=== PATIENT | female | born 1985 | race Caucasian/White ===

== ENCOUNTER 2016-03-25 10:17 | Emergency (ER) | payer OTHER, MEDICAID ==
[~2016-03-25] VITALS: Ht 170.2 cm; Wt 125.0 kg
[~2016-03-25 10:17] MED LIST: BUSP10TA8 PO; WELLTAB39 PO; XANA0.5T PO
[2016-03-25 10:18] VITALS: BP 117/84; PULSE 85; RESP 16; TEMP 99; O2SAT 97
[2016-03-25] MEDS ORDERED: WELLTAB39 PO (10:31)
[2016-03-25] MEDS ORDERED: ALPR.5 PO (10:31)
[2016-03-25] MEDS ORDERED: PERC7.5T13 PO (10:49)
[2016-03-25] MEDS ORDERED: CYCL1TAB29 PO (10:49)
--- NOTE | 2016-03-25 10:50 | PD ---
HPI Chief Complaint: Musculoskeletal Complaint Time Seen by Provider: 10:45 Travel History International Travel<30 days: No Contact w/Intl Traveler<30days: No Traveled to known affect area: No History of Present Illness HPI This 30-year-old female is complaining of left sciatic pain radiates to the front of the leg. It has been going on for several days getting progressively worse. She had an MRI done which did not show any herniation of the disc that she had some desiccation of the disks and some bulging. She had a fall 3 or 4 days ago where a chair collapsed and she landed on the right side. She was able to get up and didn't have much pain at the time since then however the pain became quite severe PFSH Past Medical History Hx Anticoagulant Therapy: No ADHD: Yes Arthritis: Yes Asthma: Yes Autoimmune Disease: No Blood Disorders: No Bipolar Disorder: Yes Anxiety: Yes Depression: Yes Cancer: No Cardiovascular Problems: No High Cholesterol: Yes ("MILD") Chemotherapy: No Cerebrovascular Accident: No Diabetes: Yes (DIET CONTROLLED) Patient Takes Glucophage: No Diminished Hearing: Yes (PT STATES " LEFT EAR") Endocrine: Yes Gastrointestinal Disorders: No Glaucoma: No Genitourinary: No Headaches: Yes Herniated Disk: Yes ("PROTRUDING DISC" LUMBAR) Immune Disorder: No Implanted Vascular Access Dvce: Yes Insomnia: Yes Musculoskeletal: Yes Neurologic: Yes Psychiatric: Yes (ADD,OCD,ANXIETY,DEPRESSION AND BIPOLAR) Reproductive: No Respiratory: No Immunizations Current: Yes Migraines: Yes Pneumonia: Yes Seizures: No Sickle Cell Disease: No Thyroid Disease: No Ulcer: No Influenza Vaccination: No PNEUMOCCOCAL Vaccine (Year): 3 ?: Not LMP: TUBAL : 14 Para: 3 Miscarriage: 11 : 0 Ovarian Cysts: Yes Tubal Ligation: Yes (2012) Past Surgical History Abdominal Surgery: Yes Appendectomy: No Body Medical Devices: pierced tongue Cholecystectomy: No Gynecologic Surgery: Yes Hysterectomy: No Other Surgery: No Social History Alcohol Use: Yes (occ) Tobacco Use: Yes (1 -2 CIGS PER DAY) Substance Use: No (PAST USE OF WEED) Allergies-Medications (Allergen,Severity, Reaction): Coded Allergies: Lortab (Verified Allergy, Severe, Anaphylaxis, 03/25/16) Reported Meds & Prescriptions Reported Meds & Active Scripts Active Reported Wellbutrin Xl 24 HR (Bupropion HCl) 300 Mg Tab 300 Mg PO DAILY Xanax (Alprazolam) 0.5 Mg Tab 0.5 Mg PO BID PRN Review of Systems General / Constitutional: No: Fever, Chills Eyes: No: Diploplia, Blurred Vision HENT: No: Vertigo Respiratory: No: Cough, Shortness of Breath Gastrointestinal: No: Nausea, Vomiting Genitourinary: No: Frequency Musculoskeletal: Positive: Myalgias, Pain Skin: No Rash, No Itching Physical Exam Narrative GENERAL: Well-developed female SKIN: Warm and dry. HEAD: Atraumatic. Normocephalic. EYES: Pupils equal and round. No scleral icterus. No injection or drainage. ENT: No nasal bleeding or discharge. Mucous membranes pink and moist. NECK: Trachea midline. No JVD. CARDIOVASCULAR: Regular rate and rhythm. No murmur appreciated. RESPIRATORY: No accessory muscle use. Clear to auscultation. Breath sounds equal bilaterally. GASTROINTESTINAL: Abdomen soft, non-tender, nondistended. Hepatic and splenic margins not palpable. MUSCULOSKELETAL: No obvious deformities. No clubbing. No cyanosis. No edema. Ears tenderness in the right sacroiliac area. Right leg raising is painful at 1345 on the left and the right she cannot tolerate any leg raising. Plantar and dorsiflexion are intact. There is diminished sensation of the upper leg NEUROLOGICAL: Awake and alert. No obvious cranial nerve deficits. Motor grossly within normal limits. Normal speech. PSYCHIATRIC: Appropriate mood and affect; insight and judgment normal. Data Data Last Documented VS Vital Signs Date Time Temp Pulse Resp B/P Pulse Ox O2 Delivery O2 Flow Rate FiO2 03/25/16 10:18 99.0 85 16 117/84 97 [facility] Medical Decision Making Medical Screen Exam Complete: Yes Emergency Medical Condition: Yes Medical Record Reviewed: Yes Differential Diagnosis Differential includes sciatica, radiculopathy, exacerbation of back pain Narrative Course Patient has symptoms of sciatica. She had been on Motrin was taken off because she was having a lot of reflux. I will prescribe Flexeril and Percocet Diagnosis Primary Impression: Sciatica of left side Scripts Cyclobenzaprine (Flexeril)10 Mg Tab10 Mg PO TID #30 TAB Ref 0 Prov:Hernesto Fay MD 03/25/16 Oxycodone-Acetaminophen (Percocet)7.5-325 mg Tab1 Tab PO Q4H PRN (PAIN) #30 TAB Ref 0 Prov:Hernesto Fay MD 03/25/16 Disposition: 01 DISCHARGE HOME Condition: Stable Hernesto Fay MD Mar 25, 2016 10:50
== END 2016-03-25 11:01 | disposition home or self-care (01) ==
LOC: PHED 10:17
DX: E78.00 Pure hypercholesterolemia, unspecified (principal); M54.32 Sciatica, left side
CPT/HCPCS: 99283

== ENCOUNTER 2016-04-08 07:06 | Emergency (ER) | payer OTHER, MEDICAID ==
[~2016-04-08] VITALS: Ht 170.2 cm; Wt 122.7 kg
[~2016-04-08 07:06] MED LIST changes: +ALPR.5 PO; -BUSP10TA8 PO; +CYCL1TAB29 PO; +PERC7.5T13 PO; -XANA0.5T PO
[2016-04-08 07:10] VITALS: BP 138/77; PULSE 80; RESP 14; TEMP 98.5; O2SAT 100
[2016-04-08] MEDS: IBUPROFEN 600 MG TAB PO ONE ×2 (07:15→07:20)
[2016-04-08] MEDS ORDERED: DIAZEPAM 5 MG TAB PO ONE (07:15)
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
[2016-04-08 08:16] VITALS: BP 115/73; PULSE 71; RESP 18; O2SAT 98
== END 2016-04-08 08:49 | disposition home or self-care (01) ==
LOC: PHED 07:06
DX: M54.5 Low back pain (principal); R07.9 Chest pain, unspecified; E78.00 Pure hypercholesterolemia, unspecified; V43.52XA Car driver injured in collision with other type car in traffic accident, initial encounter; Y93.89 Activity, other specified; Y92.410 Unspecified street and highway as the place of occurrence of the external cause
CPT/HCPCS: 71010; 72100; 99284

== ENCOUNTER 2016-05-13 09:39 | Emergency (ER) | payer OTHER ==
[~2016-05-13] VITALS: Ht 170.2 cm; Wt 126.4 kg
[~2016-05-13 09:39] MED LIST changes: -CYCL1TAB29 PO; -PERC7.5T13 PO
[2016-05-13 09:45] VITALS: BP 149/99; PULSE 100; RESP 16; TEMP 97.7; O2SAT 99
[2016-05-13] MEDS ORDERED: ACET325T PO (10:06)
[2016-05-13] MEDS ORDERED: GABA300C5 PO (10:06)
[2016-05-13] MEDS ORDERED: MILL5TAB2 PO (10:09)
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
[2016-05-13] MEDS ORDERED: ORPHENADRINE INJ 60 MG/2 ML AMP IM ONE (10:15)
[2016-05-13] MEDS ORDERED: KETOROLAC TROMETHAMINE 60 MG/2 ML (IM) VIAL IM ONE (10:15)
== END 2016-05-13 10:42 | disposition home or self-care (01) ==
LOC: PHED 09:39
DX: M54.42 Lumbago with sciatica, left side (principal); M54.41 Lumbago with sciatica, right side
CPT/HCPCS: 96372; 99283; J1885; J2360

== ENCOUNTER 2016-07-07 16:51 | Emergency (ER) | payer MEDICAID, OTHER ==
[~2016-07-07] VITALS: Ht 170.2 cm; Wt 130.0 kg
[~2016-07-07 16:51] MED LIST changes: +ACET325T PO; +GABA300C5 PO; +MILL5TAB2 PO
[2016-07-07] MEDS ORDERED: GABA100C4 PO (17:03)
[2016-07-07] MEDS ORDERED: ABIL5TAB6 PO (17:03)
[2016-07-07] MEDS ORDERED: GABA400C5 PO (17:03)
[2016-07-07] MEDS ORDERED: SODIUM CHLOR 0.9% 1000 ML INJ 1,000 ML IV ONE (17:15)
[2016-07-07] MEDS ORDERED: PROCHLORPERAZINE INJ 10 MG/2 ML VIAL IV PUSH ONE (17:15)
[2016-07-07] MEDS ORDERED: KETOROLAC TROMETHAMINE 30 MG/ML (IVP) VIAL IV PUSH ONE (17:15)
--- NOTE | 2016-07-07 17:18 | PD ---
HPI Chief Complaint: Headache Time Seen by Provider: 17:06 Travel History International Travel<30 days: No Contact w/Intl Traveler<30days: No Traveled to known affect area: No History of Present Illness HPI This 30-year-old female is complaining of migraine headache area and she has a history of chronic migraines. This headache started yesterday. She's been taking some Tylenol and Zofran the headache has not abated. She has had some vomiting. She has a history of tubal ligation. This headache is similar to previous headaches. She does see a neurologist. She does have photophobia. PFSH Past Medical History Hx Anticoagulant Therapy: No ADHD: Yes Arthritis: Yes Asthma: Yes Autoimmune Disease: No Blood Disorders: No Bipolar Disorder: Yes Anxiety: Yes Depression: Yes Cancer: No Cardiovascular Problems: Yes (takes no meds per patient but states has htn) High Cholesterol: Yes Chemotherapy: No Cerebrovascular Accident: No Diabetes: Yes (diet control) Patient Takes Glucophage: No Diminished Hearing: Yes (Lt. ear) Endocrine: Yes Gastrointestinal Disorders: No Glaucoma: No Genitourinary: No Headaches: Yes Herniated Disk: Yes ("Protuding disc" lumbar) Immune Disorder: No Implanted Vascular Access Dvce: Yes Insomnia: Yes Musculoskeletal: Yes Neurologic: Yes Psychiatric: Yes (ADD, OCD, ANXIETY, DEPRESSION, BIPOLAR) Reproductive: No Respiratory: Yes (copd) Immunizations Current: Yes Migraines: Yes Pneumonia: Yes Seizures: No Sickle Cell Disease: No Thyroid Disease: No Ulcer: No Influenza Vaccination: No PNEUMOCCOCAL Vaccine (Year): 3 ?: Not LMP: YEST : 14 Para: 3 Miscarriage: 11 : 0 Ovarian Cysts: Yes Tubal Ligation: Yes (2012) Past Surgical History Abdominal Surgery: Yes Appendectomy: No Body Medical Devices: pierced tongue Cholecystectomy: No Gynecologic Surgery: Yes Hysterectomy: No Other Surgery: No Social History Alcohol Use: Yes (occ) Tobacco Use: Yes (3-5 cigarettes/day) Substance Use: No (HX marijuana) Allergies-Medications (Allergen,Severity, Reaction): Coded Allergies: Lortab (Verified Allergy, Severe, Anaphylaxis, 07/07/16) Patient states itching, hives (04/08/16) Reported Meds & Prescriptions Reported Meds & Active Scripts Active Reported Gabapentin 400 Mg Cap 400 Cap PO HS Gabapentin 100 Mg Cap 100 Mg PO BID Abilify (Aripiprazole) 5 Mg Tab 5 Mg PO HS Wellbutrin Xl 24 HR (Bupropion HCl) 300 Mg Tab 300 Mg PO DAILY Xanax (Alprazolam) 0.5 Mg Tab 0.5 Mg PO BID PRN Review of Systems General / Constitutional: No: Fever, Chills Eyes: No: Diploplia, Blurred Vision HENT: Positive: Headaches, No: Nosebleed, Neck Stiffness Cardiovascular: No: Chest Pain or Discomfort, Palpitations Respiratory: No: Cough, Shortness of Breath Gastrointestinal: Positive: Vomiting Genitourinary: No: Urgency, Frequency Musculoskeletal: No: Myalgias, Arthralgias Skin: No Rash, No Itching Neurologic: Positive: Headache, No: Weakness, Focal Abnormalities Physical Exam Narrative GENERAL: Well-developed female. She is uncomfortable with headache SKIN: Focused skin assessment warm/dry. HEAD: Atraumatic. Normocephalic. EYES: Pupils equal and round. No scleral icterus. No injection or drainage. ENT: No nasal bleeding or discharge. Mucous membranes pink and moist. NECK: Trachea midline. No JVD. CARDIOVASCULAR: Regular rate and rhythm. No murmur appreciated. RESPIRATORY: No accessory muscle use. Clear to auscultation. Breath sounds equal bilaterally. GASTROINTESTINAL: Abdomen soft, non-tender, nondistended. Hepatic and splenic margins not palpable. MUSCULOSKELETAL: No obvious deformities. No clubbing. No cyanosis. No edema. NEUROLOGICAL: Awake and alert. No obvious cranial nerve deficits. Motor grossly within normal limits. Normal speech. PSYCHIATRIC: Appropriate mood and affect; insight and judgment normal. Data Data Last Documented VS Vital Signs Date Time Temp Pulse Resp B/P Pulse Ox O2 Delivery O2 Flow Rate FiO2 07/07/16 18:21 18 07/07/16 18:11 74 145/79 97 Room Air Orders Sodium Chlor 0.9% 1000 Ml Inj (Ns 1000 M (07/07/16 17:15) Prochlorperazine Inj (Compazine Inj) (07/07/16 17:15) Ketorolac Inj (Toradol Inj) (07/07/16 17:15) Diphenhydramine Inj (Benadryl Inj) (07/07/16 18:00) Hydromorphone Pf Inj (Dilaudid Pf Inj) (07/07/16 18:00) Hydromorphone Pf Inj (Dilaudid Pf Inj) (07/07/16 18:30) MDM Medical Decision Making Medical Screen Exam Complete: Yes Emergency Medical Condition: Yes Medical Record Reviewed: Yes Differential Diagnosis Differential includes migraine headache, tension headache Narrative Course Patient was given IV fluids and intravenous Compazine and Toradol. She had persistent headache that she has been given Dilaudid. Patient does report improvement in her pain. Will be released Diagnosis Primary Impression: Migraine headache Scripts Ondansetron Odt (Zofran Odt)4 Mg Tab4 Mg SL Q6HR PRN (Nausea/Vomiting) #10 TAB Ref 0 Prov:Hernesto Fay MD 07/07/16 Oxycodone-Acetaminophen (Percocet)10-325 mg Tab1 Tab PO Q4H PRN (PAIN) #20 TAB Ref 0 Prov:Hernesto Fay MD 07/07/16 Disposition: 01 DISCHARGE HOME Condition: Stable Hernesto Fay MD Jul 07, 2016 17:18
[2016-07-07] MEDS ORDERED: diphenhydrAMINE HCL 50 MG/ML VIAL IV PUSH ONE (18:00)
[2016-07-07] MEDS ORDERED: HYDROmorphone HCL PF 1 MG/ML VIAL IV PUSH ONE ×2 (18:00→18:30)
[2016-07-07 18:11] VITALS: BP 145/79; PULSE 74; RESP 18; O2SAT 97
[2016-07-07 18:53] VITALS: RESP 18
[2016-07-07] MEDS ORDERED: PERC10TA27 PO (18:53)
[2016-07-07] MEDS ORDERED: ZOFR4TAB3 SL (18:53)
[2016-07-07 19:16] VITALS: BP 151/84; TEMP 98
== END 2016-07-07 19:19 | disposition home or self-care (01) ==
LOC: PHED 16:51
DX: G43.909 Migraine, unspecified, not intractable, without status migrainosus (principal); F17.210 Nicotine dependence, cigarettes, uncomplicated; J45.909 Unspecified asthma, uncomplicated; I10 Essential (primary) hypertension; E78.00 Pure hypercholesterolemia, unspecified; E11.9 Type 2 diabetes mellitus without complications; R51 Headache; J44.9 Chronic obstructive pulmonary disease, unspecified
CPT/HCPCS: 96361; 96374; 96375; 96376; 99283; J0780; J1170; J1200; J1885; J7030

== ENCOUNTER 2016-07-16 19:26 | Emergency (ER) | payer OTHER ==
[~2016-07-16] VITALS: Ht 170.2 cm; Wt 124.7 kg
[~2016-07-16 19:26] MED LIST changes: +ABIL5TAB6 PO; -ACET325T PO; +GABA100C4 PO; -GABA300C5 PO; +GABA400C5 PO; -MILL5TAB2 PO; +PERC10TA27 PO; +ZOFR4TAB3 SL
[2016-07-16 19:31] VITALS: BP 130/94; PULSE 111; RESP 20; TEMP 98.1; O2SAT 99
[2016-07-16 19:57] VITALS: BP 108/64; PULSE 87; RESP 18; O2SAT 100
[2016-07-16] MEDS ORDERED: traMADol HCL 50 MG TAB PO ONE (20:00)
--- NOTE | 2016-07-16 20:52 | PD ---
HPI . Fall Chief Complaint: Fall Time Seen by Provider: 19:59 Travel History International Travel<30 days: No Contact w/Intl Traveler<30days: No Traveled to known affect area: No History of Present Illness HPI Patient presents ambulatory status post a fall at home. She states that she was washing the steps with soap and water and inadvertently slipped on the steps and fell. Her significant other reports that she sort of twisted and fell onto her left side and then onto her back. She did hit her head but did not have a loss of consciousness. She denies any head pain. She denies any blurred vision, nausea or dizziness. She is complaining with low back pain, left hip pain and left knee pain. She reports her pain is 10/10. Pain is exacerbated by movement. No relieving factors. Pain is sharp. PFSH Past Medical History Hx Anticoagulant Therapy: No ADHD: Yes Arthritis: Yes Asthma: Yes Autoimmune Disease: No Blood Disorders: No Bipolar Disorder: Yes Anxiety: Yes Depression: Yes Cancer: No Cardiovascular Problems: Yes (takes no meds per patient but states has htn) High Cholesterol: Yes Chemotherapy: No Cerebrovascular Accident: No Diabetes: Yes (diet control) Patient Takes Glucophage: No Diminished Hearing: Yes (Lt. ear) Endocrine: Yes Gastrointestinal Disorders: No Glaucoma: No Genitourinary: No Headaches: Yes Herniated Disk: Yes ("Protuding disc" lumbar) Immune Disorder: No Implanted Vascular Access Dvce: Yes Insomnia: Yes Musculoskeletal: Yes Neurologic: Yes Psychiatric: Yes (ADD, OCD, ANXIETY, DEPRESSION, BIPOLAR) Reproductive: No Respiratory: Yes (copd) Immunizations Current: Yes Migraines: Yes Pneumonia: Yes Seizures: No Sickle Cell Disease: No Thyroid Disease: No Ulcer: No Influenza Vaccination: No PNEUMOCCOCAL Vaccine (Year): 3 ?: Unknown LMP: 07/12/16 : 14 Para: 3 Miscarriage: 11 : 0 Ovarian Cysts: Yes Tubal Ligation: Yes (2012) Past Surgical History Abdominal Surgery: Yes Appendectomy: No Body Medical Devices: pierced tongue Cholecystectomy: No Gynecologic Surgery: Yes Hysterectomy: No Other Surgery: No Social History Alcohol Use: Yes (occ) Tobacco Use: Yes (/2 ppd) Substance Use: Yes (Daily marijuana ) Allergies-Medications (Allergen,Severity, Reaction): Coded Allergies: Lortab (Verified Allergy, Severe, Anaphylaxis, 07/16/16) Patient states itching, hives (04/08/16) Reported Meds & Prescriptions Reported Meds & Active Scripts Active Ultram (Tramadol HCl) 50 Mg Tab 50 Mg PO Q4H PRN Ibuprofen 800 Mg Tab 800 Mg PO Q8H PRN Zofran Odt (Ondansetron Odt) 4 Mg Tab 4 Mg SL Q6HR PRN Percocet (Oxycodone-Acetaminophen) 10-325 mg Tab 1 Tab PO Q4H PRN Reported Gabapentin 400 Mg Cap 400 Cap PO HS Gabapentin 100 Mg Cap 100 Mg PO BID Abilify (Aripiprazole) 5 Mg Tab 5 Mg PO HS Wellbutrin Xl 24 HR (Bupropion HCl) 300 Mg Tab 300 Mg PO DAILY Xanax (Alprazolam) 0.5 Mg Tab 0.5 Mg PO BID PRN Review of Systems Except as stated in HPI: all other systems reviewed are Neg Eyes: No: Blurred Vision HENT: No: Headaches, Lightheadedness Cardiovascular: No: Chest Pain or Discomfort Respiratory: No: Shortness of Breath Gastrointestinal: No: Nausea, Vomiting, Diarrhea Musculoskeletal: Positive: Myalgias, Arthralgias Physical Exam Narrative GENERAL: Awake and alert and in no acute distress. SKIN: Warm and dry. No bruising noted. HEAD: Atraumatic. Normocephalic. She does have some tenderness to palpation of the left occiput. EYES: Pupils equal and round. Pupils are equally round and reactive to light. NECK: Trachea midline. I was unable to elicit any C-spine tenderness. CARDIOVASCULAR: Regular rate and rhythm. RESPIRATORY: No accessory muscle use. MUSCULOSKELETAL: No obvious deformities. No edema. Tender in the left buttock area, left groin and left knee. NEUROLOGICAL: Awake and alert. No obvious cranial nerve deficits. Motor grossly within normal limits. Normal speech. PSYCHIATRIC: Appropriate mood and affect; insight and judgment normal. Data Data Last Documented VS Vital Signs Date Time Temp Pulse Resp B/P Pulse Ox O2 Delivery O2 Flow Rate FiO2 07/16/16 21:28 73 16 98 Room Air 07/16/16 21:28 107/52 07/16/16 19:[address] Brain W/O Iv Contrast(Rout) (07/16/16 20:00) Ct Cerv Spine W/O Contrast (07/16/16 20:00) Ct Lumb Spine W/O Contrast (07/16/16 20:00) Hip, Uni(Ap&Lat) W Ap Pelvis (07/16/16 20:00) Knee, Complete (4vws) (07/16/16 20:00) Ed Urine Pregnancytest Poc (07/16/16 20:00) Tramadol (Ultram) (07/16/16 20:00) MDM Medical Decision Making Medical Screen Exam Complete: Yes Emergency Medical Condition: Yes Differential Diagnosis Differential diagnosis of extremity trauma includes but is not limited to fracture, sprain or strain, dislocation, contusion My differential diagnosis of head trauma includes but is not limited to scalp contusion, concussion, intracerebral hemorrhage. Narrative Course Patient presents for evaluation of injury sustained in a fall. Last Impressions Knee X-Ray 07/16/161999 Signed Impressions: Service Date/Time: Saturday, July 16, 2016 20:33 - CONCLUSION: Unremarkable examination of the left knee. Deion Craig MD Hip and Pelvis X-Ray 07/16/161999 Signed Impressions: Service Date/Time: Saturday, July 16, 2016 20:29 - CONCLUSION: Unremarkable examination of the left hip. Dieon Craig MD Head CT 07/16/161999 Signed Impressions: Service Date/Time: Saturday, July 16, 2016 20:53 - CONCLUSION: 1. No intracranial abnormality seen. 2. Ethmoid sinus disease. Deion Craig MD Cervical Spine CT 07/16/161999 Signed Impressions: Service Date/Time: Saturday, July 16, 2016 20:53 - CONCLUSION: No acute disease. Deion Craig MD CT L-spine 1. Lateral central disc protrusion that is peripherally calcified at the L5-S1 level seen in close proximity to the S1 nerve roots especially on the left. 2. Minimal bulging at the L4-5 level without significant stenosis. Plain films were independently viewed by me. Diagnosis Primary Impression: Fall Qualified Code: W19.XXXA - Fall, initial encounter Additional Impression: Multiple contusions Patient Instructions: Contusion in Adults (DC), General Instructions Med/Other Pt SpecificInfo: Prescription(s) given Scripts Tramadol (Ultram)50 Mg Tab50 Mg PO Q4H PRN (PAIN) #12 TAB Ref 0 Prov:Caridad Conteh MD 07/16/16 Ibuprofen 800 Mg [id number] Mg PO Q8H PRN (Pain/Inflammation) #30 TAB Ref 0 Prov:Caridad Conteh MD 07/16/16 Disposition: 01 DISCHARGE HOME Condition: Stable Caridad Conteh MD July 16, 2016 20:52
--- NOTE | 2016-07-16 21:05 | RADHPO ---
EXAM DATE/TIME: 07/16/2016 20:29 [facility] COMPARISON: No previous studies available for comparison. INDICATIONS : Left hip pain post falling down stairs. MEDICAL HISTORY : None. SURGICAL HISTORY : None. ENCOUNTER: Initial ACUITY: 1 day PAIN SCORE: 10/10 LOCATION: Left hip. FINDINGS: Examination of the left hip was performed with AP Pelvis. The primary and secondary trabecular patte rn of the femoral neck is intact. The hip joint is of normal width without significant sclerosis or bony hypertrophy. The acetabulum is grossly intact. CONCLUSION: Unremarkable examination of the left hip. Deion Craig MD on July 16, 2016 at 20:57 Board Certified Radiologist. This report was verified electronically.
--- NOTE | 2016-07-16 21:08 | RADHPO ---
EXAM DATE/TIME: 07/16/2016 20:33 [facility] COMPARISON: No previous studies available for comparison. INDICATIONS : Left knee pain post falling down stairs. MEDICAL HISTORY : None. SURGICAL HISTORY : None. ENCOUNTER: Initial ACUITY: 1 day PAIN SCORE: 6/10 LOCATION: Left knee. FINDINGS: Four view examination of the left knee demonstrates no evidence of fracture or dislocation. Bony min eralization is normal. The articular surfaces are intact. The suprapatellar soft tissues have a nor mal configuration. CONCLUSION: Unremarkable examination of the left knee. Deino Craig MD on July 16, 2016 at 21:03 Board Certified Radiologist. This report was verified electronically.
[2016-07-16 21:28] VITALS: BP 107/52; PULSE 73; RESP 16; O2SAT 98
--- NOTE | 2016-07-16 21:35 | RADHPO ---
EXAM DATE/TIME: 07/16/2016 20:53 [facility] COMPARISON: CT BRAIN W/O CONTRAST, August 04, 2012, 20:04. INDICATIONS : Trauma. Fall. Cephalgia. RADIATION DOSE: 59.65 CTDIvol (mGy) MEDICAL HISTORY : Diabetes mellitus type 2. SURGICAL HISTORY : None. ENCOUNTER: Initial ACUITY: 1 day PAIN SCALE: 9/10 LOCATION: Bilateral cranial TECHNIQUE: Multiple contiguous axial images were obtained of the head. Using automated exposure control and adj ustment of the mA and/or kV according to patient size, radiation dose was kept as low as reasonably a chievable to obtain optimal diagnostic quality images. FINDINGS: CEREBRUM: The ventricles are normal for age. No evidence of midline shift, mass lesion, hemorrhage or acute in farction. No extra-axial fluid collections are seen. POSTERIOR FOSSA: The cerebellum and brainstem are intact. The 4th ventricle is midline. The cerebellopontine angle i s unremarkable. EXTRACRANIAL: The visualized portion of the orbits is intact. There is ethmoid sinus disease. SKULL: The calvaria is intact. No evidence of skull fracture. CONCLUSION: 1. No intracranial abnormality seen. 2. Ethmoid sinus disease. Deion Craig MD on July 16, 2016 at 21:33 Board Certified Radiologist. This report was verified electronically.
--- NOTE | 2016-07-16 21:37 | RADHPO ---
EXAM DATE/TIME: 07/16/2016 20:53 [facility] COMPARISON: No previous studies available for comparison. INDICATIONS : Trauma. Fall. Neck pain. RADIATION DOSE: 26.45 CTDIvol (mGy) MEDICAL HISTORY : Diabetes mellitus type 2. SURGICAL HISTORY : None. ENCOUNTER: Initial ACUITY: 1 day PAIN SCALE: 9/10 LOCATION: Bilateral neck TECHNIQUE: Volumetric scanning of the cervical spine was performed. Multiplanar reconstructions in the sagittal, coronal and oblique axial planes were performed. Using automated exposure control and adjustment o f the mA and/or kV according to patient size, radiation dose was kept as low as reasonably achievable to obtain optimal diagnostic quality images. FINDINGS: VERTEBRAE: Normal vertebral body height. ALIGNMENT: No evidence of subluxation. There is straightening of the normal C-spine lordosis. C2-C3: The bony spinal canal is normal in size. No evidence of disc bulge or herniation. The neural forami na are bilaterally patent. C3-C4: The bony spinal canal is normal in size. No evidence of disc bulge or herniation. The neural forami na are bilaterally patent. C4-C5: The bony spinal canal is normal in size. No evidence of disc bulge or herniation. The neural forami na are bilaterally patent. C5-C6: The bony spinal canal is normal in size. No evidence of disc bulge or herniation. The neural forami na are bilaterally patent. C6-C7: The bony spinal canal is normal in size. No evidence of disc bulge or herniation. The neural forami na are bilaterally patent. C7-T1: The bony spinal canal is normal in size. No evidence of disc bulge or herniation. The neural forami na are bilaterally patent. CONCLUSION: No acute disease. Deion Craig MD on July 16, 2016 at 21:34 Board Certified Radiologist. This report was verified electronically.
[2016-07-16] MEDS ORDERED: ULTR50TA5 PO (21:53)
[2016-07-16] MEDS ORDERED: IBUP800T23 PO (21:53)
--- NOTE | 2016-07-16 22:07 | RADHPO ---
EXAM DATE/TIME: 07/16/2016 20:59 [facility] COMPARISON: CT ABDOMEN & PELVIS W/O CONTRAST, May 20, 2014, 19:24. INDICATIONS : Trauma. Fall. Lower back pain. RADIATION DOSE: 24.60 CTDIvol (mGy) MEDICAL HISTORY : Diabetes mellitus type 2. Herniated lumbar disc. SURGICAL HISTORY : None. ENCOUNTER: Initial ACUITY: 1 day PAIN SCALE: 9/10 LOCATION: Bilateral lower back. TECHNIQUE: Volumetric scanning of the lumbar spine was performed. Multiplanar reconstructions in the sagittal, coronal and oblique axial planes were performed. Using automated exposure control and adjustment of the mA and/or kV according to patient size, radiation dose was kept as low as reasonab ly achievable to obtain optimal diagnostic quality images. FINDINGS: VERTEBRAE: Normal vertebral body height. ALIGNMENT: No evidence of subluxation. T12-L1: The thecal sac has a normal diameter. No evidence of disc bulge or protrusion. The neural foramina are patent bilaterally. L1-L2: The thecal sac has a normal diameter. No evidence of disc bulge or protrusion. The neural foramina are patent bilaterally. L2-L3: The thecal sac has a normal diameter. No evidence of disc bulge or protrusion. The neural foramina are patent bilaterally. L3-L4: The thecal sac has a normal diameter. No evidence of disc bulge or protrusion. The neural foramina are patent bilaterally. L4-L5: There is slight bulging without significant spinal stenosis and the neural foramina are nor mal. The facet joints are normal. L5-S1: There is a focal central disc protrusion. The posterior margin of the protrusion appears c alcified consistent with chronic change. In retrospect some of these changes can be seen on a prior CT of the abdomen performed on 05/20/2014. The disc causes a mild impression on the anterior aspect of the thecal sac. It is seen in close proximity to the S1 nerve roots while they are within the latera l recess regions especially on the left. The neural foramina are patent bilaterally. CONCLUSION: 1. Lateral central disc protrusion that is peripherally calcified at the L5-S1 level seen in close pr oximity to the S1 nerve roots especially on the left. 2. Minimal bulging at the L4-5 level without significant stenosis. Deion Craig MD on July 16, 2016 at 21:57 Board Certified Radiologist. This report was verified electronically.
== END 2016-07-16 22:41 | disposition home or self-care (01) ==
LOC: PHED 19:26
DX: T14.8 Other injury of unspecified body region (principal); E78.00 Pure hypercholesterolemia, unspecified; F17.210 Nicotine dependence, cigarettes, uncomplicated; F12.10 Cannabis abuse, uncomplicated; W01.198A Fall on same level from slipping, tripping and stumbling with subsequent striking against other object, initial encounter; Y93.E6 Activity, residential relocation; Y92.018 Other place in single-family (private) house as the place of occurrence of the external cause; Y99.9 Unspecified external cause status
CPT/HCPCS: 70450; 72125; 72131; 73502; 73564; 84703

== ENCOUNTER 2016-08-07 20:00 | Emergency (ER) | payer OTHER ==
[~2016-08-07] VITALS: Ht 170.2 cm; Wt 124.0 kg
[~2016-08-07 20:00] MED LIST changes: +IBUP800T23 PO; +ULTR50TA5 PO
[2016-08-07 20:35] VITALS: BP 121/89; PULSE 77; RESP 18; TEMP 98; O2SAT 98
[2016-08-07] MEDS ORDERED: ARIP1TAB5 PO (20:48)
--- NOTE | 2016-08-07 20:48 | PD ---
HPI Chief Complaint: Laceration/Skin Injury Time Seen by Provider: 20:42 Travel History International Travel<30 days: No Contact w/Intl Traveler<30days: No Traveled to known affect area: No History of Present Illness HPI 30-year-old female presents the emergency department with injury to the right foot and ankle from her own cat. Patient has a bite to the right medial upper ankle, with multiple superficial clew smith/abrasions to the dorsal right foot. Patient states she is up-to-date on her tetanus. She states this happened this morning. She states the cat was up-to-date on her shots. Patient is having increasing pain and swelling over the puncture smith from the teeth in the right upper medial ankle. Patient denies numbness, tingling, or weakness. Patient denies fever, chills, or red streaks. She is allergic to Lortab. PFSH Past Medical History Hx Anticoagulant Therapy: No ADHD: Yes Arthritis: Yes Asthma: Yes Autoimmune Disease: No Blood Disorders: No Bipolar Disorder: Yes Anxiety: Yes Depression: Yes Cancer: No Cardiovascular Problems: Yes (takes no meds per patient but states has htn) High Cholesterol: Yes Chemotherapy: No Cerebrovascular Accident: No Diabetes: Yes Diminished Hearing: Yes (Lt. ear) Endocrine: Yes Gastrointestinal Disorders: No Glaucoma: No Genitourinary: No Headaches: Yes Herniated Disk: Yes ("Protuding disc" lumbar) Immune Disorder: No Implanted Vascular Access Dvce: Yes Insomnia: Yes Musculoskeletal: Yes Neurologic: Yes Psychiatric: Yes (ADD, OCD, ANXIETY, DEPRESSION, BIPOLAR) Reproductive: No Respiratory: Yes (copd) Immunizations Current: Yes Migraines: Yes Pneumonia: Yes Seizures: No Sickle Cell Disease: No Thyroid Disease: No Ulcer: No PNEUMOCCOCAL Vaccine (Year): 3 ?: Not LMP: 07-26-17 : 14 Para: 3 Miscarriage: 11 : 0 Ovarian Cysts: Yes Tubal Ligation: Yes (2012) Past Surgical History Abdominal Surgery: Yes Appendectomy: No Body Medical Devices: pierced tongue Cholecystectomy: No Gynecologic Surgery: Yes Hysterectomy: No Other Surgery: No Social History Alcohol Use: Yes (occ) Tobacco Use: Yes (1/2 ppd) Substance Use: Yes (Daily marijuana ) Allergies-Medications (Allergen,Severity, Reaction): Coded Allergies: Lortab (Verified Allergy, Severe, Anaphylaxis, 08/07/16) Patient states itching, hives (04/08/16) Reported Meds & Prescriptions Reported Meds & Active Scripts Active Ibuprofen 800 Mg Tab 800 Mg PO Q8H PRN Augmentin (Amoxicillin-Clavulanate) 875-125 mg Tab 875 Mg PO BID not for use in CrCl <30 ml/min. Reported Abilify (Aripiprazole) 10 Mg Tab 10 Mg PO DAILY Gabapentin 400 Mg Cap 400 Cap PO HS Wellbutrin Xl 24 HR (Bupropion HCl) 300 Mg Tab 300 Mg PO DAILY Xanax (Alprazolam) 0.5 Mg Tab 0.5 Mg PO BID PRN Review of Systems Except as stated in HPI: all other systems reviewed are Neg General / Constitutional: No: Fever Eyes: No: Visual changes HENT: No: Headaches Cardiovascular: No: Chest Pain or Discomfort Respiratory: No: Shortness of Breath Gastrointestinal: No: Abdominal Pain Genitourinary: No: Dysuria Musculoskeletal: No: Pain Skin: No Rash Neurologic: No: Weakness Psychiatric: No: Depression Endocrine: No: Polydipsia Hematologic/Lymphatic: No: Easy Bruising Physical Exam Narrative GENERAL: Patient appears in mild distress. SKIN: Warm and dry. Normal color. Normal turgor. Patient has several superficial abrasions to the dorsal foot and anterior ankle from cat claws, as well as 2 definitive puncture wounds to the right upper medial ankle localized swelling and tenderness. No significant erythema or streaking is noted. HEAD: Atraumatic. Normocephalic. EYES: Pupils equal and round. No scleral icterus. No injection or drainage. ENT: No nasal bleeding or discharge. Mucous membranes pink and moist. Pharynx is clear. NECK: Trachea midline. Supple. CARDIOVASCULAR: Regular rate and rhythm. RESPIRATORY: No accessory muscle use. Clear to auscultation. Breath sounds equal bilaterally. MUSCULOSKELETAL: Extremities without clubbing, cyanosis, or edema. No obvious deformities. NEUROLOGICAL: Awake and alert. No obvious cranial nerve deficits. Motor grossly within normal limits. Five out of 5 muscle strength in the arms and legs. Normal speech. PSYCHIATRIC: Appropriate mood and affect; insight and judgment normal. Data Data Last Documented VS Vital Signs Date Time Temp Pulse Resp B/P Pulse Ox O2 Delivery O2 Flow Rate FiO2 08/07/16 20:35 98.0 77 18 121/89 98 Orders Amoxicil-Clavulanate (Augmentin) (08/07/16 21:00) Prednisone (Deltasone) (08/07/16 21:00) Ibuprofen (Motrin) (08/07/16 21:00) [facility] Medical Decision Making Medical Screen Exam Complete: Yes Emergency Medical Condition: Yes Differential Diagnosis Cat Bite. Right foot abrasions. Cellulitis. Narrative Course Patient is medically stable at time of exam. Patient is given Augmentin 875 by mouth now. Patient is given 800 mg ibuprofen by mouth. Sterile dressing and Angel Luis wrap was applied to the area for comfort. Patient will be continued on Augmentin twice a day 7 days as well as ibuprofen 800 mg 3 times a day #30. Patient should keep an eye on it over the next 24-48 hours and if not improving or worsening she should be seen right away. Diagnosis Primary Impression: Cat bite of ankle Qualified Code: S91.051A - Cat bite of ankle, right, initial encounter Patient Instructions: Animal Bite (ED), General Instructions Additional Instructions: Patient is given Augmentin 875 by mouth now. Patient is given 800 mg ibuprofen by mouth. Sterile dressing and Angel Luis wrap was applied to the area for comfort. Patient will be continued on Augmentin twice a day 7 days as well as ibuprofen 800 mg 3 times a day #30. Patient should keep an eye on it over the next 24-48 hours and if not improving or worsening she should be seen right away. Scripts Ibuprofen 800 Mg [id number] Mg PO Q8H PRN (Pain/Inflammation) #30 TAB Prov:Joana Zuniga MD 08/07/16 Amoxicillin-Clavulanate (Augmentin)875-125 mg [id number] Mg PO BID #14 TAB not for use in CrCl <30 ml/min. Prov:Joana Zuniga MD 08/07/16 Disposition: 01 DISCHARGE HOME Condition: Stable Shahab Rosenberg August 07, 2016 20:48
[2016-08-07] MEDS ORDERED: AUGM875T PO (20:58)
[2016-08-07] MEDS ORDERED: IBUP800T23 PO (20:58)
[2016-08-07] MEDS ORDERED: AMOXICILLIN/CLAVULANATE K 875 MG TAB PO ONE (21:00)
[2016-08-07] MEDS ORDERED: predniSONE 20 MG TAB PO SCH (21:00)
[2016-08-07] MEDS ORDERED: IBUPROFEN 800 MG TAB PO ONE (21:00)
== END 2016-08-07 21:23 | disposition home or self-care (01) ==
LOC: PHEFT 20:00
DX: S91.051A Open bite, right ankle, initial encounter (principal); F90.9 Attention-deficit hyperactivity disorder, unspecified type; J45.909 Unspecified asthma, uncomplicated; M19.90 Unspecified osteoarthritis, unspecified site; F31.9 Bipolar disorder, unspecified; E78.00 Pure hypercholesterolemia, unspecified; E11.9 Type 2 diabetes mellitus without complications; F42.9 Obsessive-compulsive disorder, unspecified; W55.03XA Scratched by cat, initial encounter
CPT/HCPCS: 99283

== ENCOUNTER 2017-01-08 01:07 | Emergency (ER) | payer OTHER ==
[~2017-01-08] VITALS: Ht 170.2 cm; Wt 125.0 kg
[~2017-01-08 01:07] MED LIST changes: -ABIL5TAB6 PO; +ARIP1TAB5 PO; +AUGM875T PO; -GABA100C4 PO; -PERC10TA27 PO; -ULTR50TA5 PO; -ZOFR4TAB3 SL
[2017-01-08 01:11] VITALS: BP 148/89; PULSE 97; RESP 16; TEMP 97.6; O2SAT 96
[2017-01-08] MEDS ORDERED: OMEP20TA PO (01:19)
[2017-01-08] MEDS ORDERED: METF500T PO (01:19)
[2017-01-08] MEDS ORDERED: CLON.5 PO (01:19)
--- NOTE | 2017-01-08 01:26 | PD ---
HPI Chief Complaint: Allergic/Adverse Reaction Time Seen by Provider: 01:26 Travel History International Travel<30 days: No Contact w/Intl Traveler<30days: No Traveled to known affect area: No History of Present Illness HPI 31-year-old female came to the emergency room with a reaction after using her hair dye. She was trying to turn her hair color blond. As soon as she put the dye on her hair she started to get extremely itchy. Her friend was there who brought her into the emergency room. Patient has been managing her whole skin since then. She appears to be quite anxious. Vital signs otherwise stable. Patient says she took 50 mg of Benadryl 1 hour prior to coming to the emergency room. No history of respiratory distress. This is never happened to her before and she has used the product in the past. [facility] Past Medical History Narrative Medical List of her past medical, surgical, social and family history is reviewed from the nursing note. Hx Anticoagulant Therapy: No ADHD: Yes Arthritis: Yes Asthma: Yes Autoimmune Disease: No Blood Disorders: No Bipolar Disorder: Yes Anxiety: Yes Depression: Yes Cancer: No Cardiovascular Problems: Yes (takes no meds per patient but states has htn) High Cholesterol: Yes Chemotherapy: No Cerebrovascular Accident: No Diabetes: Yes Patient Takes Glucophage: No Diminished Hearing: Yes (Lt. ear) Endocrine: Yes Gastrointestinal Disorders: No Glaucoma: No Genitourinary: No Headaches: Yes Herniated Disk: Yes ("Protuding disc" lumbar) Immune Disorder: No Implanted Vascular Access Dvce: Yes Insomnia: Yes Musculoskeletal: Yes Neurologic: Yes Psychiatric: Yes (ADD, OCD, ANXIETY, DEPRESSION, BIPOLAR) Reproductive: No Respiratory: Yes (COPD - BRONCHITIS) Immunizations Current: Yes Migraines: Yes Pneumonia: Yes Seizures: No Sickle Cell Disease: No Thyroid Disease: No Ulcer: No Tetanus Vaccination: < 5 Years Influenza Vaccination: No PNEUMOCCOCAL Vaccine (Year): 3 ?: Not : 14 Para: 3 Miscarriage: 11 : 0 Ovarian Cysts: Yes Tubal Ligation: Yes (2012) Past Surgical History Abdominal Surgery: Yes Appendectomy: No Body Medical Devices: pierced tongue Cholecystectomy: No Gynecologic Surgery: Yes Hysterectomy: No Other Surgery: No Social History Alcohol Use: Yes (OCCASSIONALLY) Tobacco Use: Yes (03/20 PPD) Substance Use: No (HX marijuana ) Allergies-Medications (Allergen,Severity, Reaction): Coded Allergies: acetaminophen (Verified Allergy, Severe, Anaphylaxis, 01/08/17) Patient states itching, hives (04/08/16) hydrocodone (Verified Allergy, Severe, Anaphylaxis, 01/08/17) Patient states itching, hives (04/08/16) Comments List of her allergies reviewed from the nursing note. Reported Meds & Prescriptions Reported Meds & Active Scripts Active Reported Metformin (Metformin HCl) 500 Mg Tab 500 Mg PO BIDPC Omeprazole 20 Mg Tab 20 Mg PO DAILY Klonopin (Clonazepam) 0.5 Mg Tab 0.5 Mg PO BID Abilify (Aripiprazole) 10 Mg Tab 10 Mg PO DAILY Wellbutrin Xl 24 HR (Bupropion HCl) 300 Mg Tab 300 Mg PO DAILY Narrative Medication List to her home medications reviewed from the nursing note. Review of Systems Except as stated in HPI: all other systems reviewed are Neg Skin: Positive Rash, Positive Itching Physical Exam Narrative GENERAL: Awake, alert, obese, anxious SKIN: Focused skin assessment warm/dry. Slight erythema of her skin on her arm , neck and the anterior part of the chest. HEAD: Atraumatic. Normocephalic. EYES: Pupils equal and round. No scleral icterus. No injection or drainage. ENT: No nasal bleeding or discharge. Mucous membranes pink and moist. NECK: Trachea midline. No JVD. CARDIOVASCULAR: Regular rate and rhythm. No murmur appreciated. RESPIRATORY: No accessory muscle use. Clear to auscultation. Breath sounds equal bilaterally. GASTROINTESTINAL: Abdomen soft, non-tender, nondistended. Hepatic and splenic margins not palpable. MUSCULOSKELETAL: No obvious deformities. No clubbing. No cyanosis. No edema. NEUROLOGICAL: Awake and alert. No obvious cranial nerve deficits. Motor grossly within normal limits. Normal speech. PSYCHIATRIC: Appropriate mood and affect; insight and judgment normal. Data Data Last Documented VS Orders Orders Lorazepam Inj (Ativan Inj) (01/08/17 01:30) Methylprednisolone So Succ Inj (Solumedr (01/08/17 01:30) Ed Discharge Order (01/08/17 03:29) MDM Medical Decision Making Medical Screen Exam Complete: Yes Emergency Medical Condition: Yes Medical Record Reviewed: Yes Differential Diagnosis Contact dermatitis, allergic reaction Narrative Course 3:10 AM patient was given IV Ativan and IV Solu-Medrol. I watched her for 2 hours and she did fine. I will discharge her home. Procedures EKG Prior to Arrival: No Diagnosis Primary Impression: Contact dermatitis Qualified Codes: L24.5 - Irritant contact dermatitis due to other chemical products Additional Impression: Anxiety Referrals: Primary Care Physician Additional Instructions: Please return to the ER if the condition worsens or any other new concerns. Follow-up with your primary care. Med/Other Pt SpecificInfo: No Change to Meds Disposition: 01 DISCHARGE HOME Condition: Stable Danae Noriega MD Jan 08, 2017 01:26
[2017-01-08] MEDS ORDERED: LORazepam 2 MG/ML VIAL IV PUSH ONE (01:30)
[2017-01-08] MEDS ORDERED: methylPREDNISolone SOD SUCC 125 MG/2 ML VIAL IV PUSH ONE (01:30)
== END 2017-01-08 03:39 | disposition home or self-care (01) ==
LOC: NEPE 01:07
DX: L24.5 Irritant contact dermatitis due to other chemical products (principal); F41.9 Anxiety disorder, unspecified; F31.9 Bipolar disorder, unspecified; I10 Essential (primary) hypertension; E78.00 Pure hypercholesterolemia, unspecified; E11.9 Type 2 diabetes mellitus without complications; J44.9 Chronic obstructive pulmonary disease, unspecified; F17.200 Nicotine dependence, unspecified, uncomplicated; Z79.899 Other long term (current) drug therapy
CPT/HCPCS: 96374; 96375; 99284; J2060; J2930

== ENCOUNTER 2017-09-09 15:41 | Emergency (ER) | payer OTHER ==
[~2017-09-09] VITALS: Ht 170.2 cm; Wt 115.0 kg
[~2017-09-09 15:41] MED LIST changes: +ABIL10TA8 PO; -ALPR.5 PO; -ARIP1TAB5 PO; -AUGM875T PO; +CLON.5 PO; -GABA400C5 PO; -IBUP800T23 PO; +METF500T PO; +OMEP20TA93 PO
[2017-09-09 15:51] VITALS: BP 136/86; PULSE 95; RESP 16; TEMP 99.6; O2SAT 98
[2017-09-09 16:00] LABS: BILIRUBIN, URINE NEG (NEG); BLOOD, URINE LARGE (NEG); GLUCOSE,URINE NEG (NEG); KETONE, URINE NEG (NEG); NITRITE,URINE NEG (NEG); URINE COLOR YELLOW (YELLW/STRAW); URINE LEUKOCYTE ESTERASE NEG (NEG)
[2017-09-09 16:05] LABS: WBC, URINE 0-2 /hpf (0-5)
[2017-09-09 16:06] LABS: SQUAMOUS EPITHELIAL CELL URINE 0-5 /hpf (0-5)
[2017-09-09] MEDS ORDERED: ALBUAER3 INH (21:51)
[2017-09-09] MEDS ORDERED: ZOFR4TAB3 SL (22:23)
[2017-09-09] MEDS ORDERED: DOXY100C PO (23:21)
== END 2017-09-09 17:50 | disposition left against medical advice (07) ==
LOC: PHED 15:41
DX: R39.9 Unspecified symptoms and signs involving the genitourinary system (principal)
CPT/HCPCS: 81001; 84703; 99281

== ENCOUNTER 2017-09-09 19:11 | Emergency (ER) | payer OTHER ==
[~2017-09-09] VITALS: Ht 170.2 cm; Wt 115.1 kg
[2017-09-09 19:19] VITALS: BP 148/73; PULSE 89; RESP 16; TEMP 98.7; O2SAT 99
[2017-09-09] MEDS ORDERED: ALBUAER3 INH (21:51)
[2017-09-09] MEDS ORDERED: ZOFR4TAB3 SL (22:23)
--- NOTE | 2017-09-09 22:26 | PD ---
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 She is being scheduled to see a contracting analyst through [facility] but she is awaiting her assignment. She denies any fever but does have some nausea with vomiting. The vomiting is mild. She states the pain is 8/10 and achy, cramping type pain. She states she came to the emergency department because Dr. Guillen wanted to rule out an ectopic . The patient has been having vaginal bleeding for a month. PFSH Past Medical History Hx Anticoagulant Therapy: No ADD: Yes ADHD: Yes Arthritis: Yes Asthma: Yes Autoimmune Disease: No Blood Disorders: No Bipolar Disorder: Yes Anxiety: Yes Depression: Yes Cancer: No Cardiovascular Problems: Yes (takes no meds per patient but states has htn) High Cholesterol: Yes Chemotherapy: No Cerebrovascular Accident: No Diabetes: Yes Patient Takes Glucophage: Yes (07/10/17) Diminished Hearing: Yes (Lt. ear) Endocrine: Yes Gastrointestinal Disorders: No GERD: Yes Glaucoma: No Genitourinary: No Headaches: Yes Herniated Disk: Yes ("Protuding disc" lumbar) Immune Disorder: No Implanted Vascular Access Dvce: Yes Insomnia: Yes Musculoskeletal: Yes Neurologic: Yes Psychiatric: Yes (ADD, OCD, ANXIETY, DEPRESSION, BIPOLAR) Reproductive: No Respiratory: Yes (COPD - BRONCHITIS) Immunizations Current: Yes Migraines: Yes Pneumonia: Yes Seizures: No Sickle Cell Disease: No Thyroid Disease: No Ulcer: No PNEUMOCCOCAL Vaccine (Year): 3 ?: Unknown LMP: not sure, intermittent vaginal bleeding for one month : 5 Para: 3 Miscarriage: 2 : 0 Ovarian Cysts: Yes Tubal Ligation: Yes (2012) Past Surgical History Abdominal Surgery: Yes Appendectomy: No Body Medical Devices: pierced tongue Cholecystectomy: No Gynecologic Surgery: Yes Hysterectomy: No Other Surgery: No Social History Alcohol Use: Yes (OCCASSIONALLY) Tobacco Use: Yes (03/20 PPD) Substance Use: No (HX marijuana ) Allergies-Medications (Allergen,Severity, Reaction): Coded Allergies: acetaminophen (Verified Allergy, Severe, Anaphylaxis, 09/09/17) Patient states itching, hives (04/08/16) hydrocodone (Verified Allergy, Severe, Anaphylaxis, 09/09/17) Patient states itching, hives (04/08/16) Reported Meds & Prescriptions Reported Meds & Active Scripts Active Doxycycline Hyclate 100 Mg Cap 100 Mg PO BID Reported Zofran Odt (Ondansetron Odt) 4 Mg Tab 4 Mg SL Q6HR PRN Proair Hfa 8.5 GM Inh (Albuterol Sulfate) 90 Mcg/Act Aer 1 Puff INH Q4H PRN 108 mcg/actuation Metformin (Metformin HCl) 500 Mg Tab 500 Mg PO BIDPC Omeprazole 20 Mg Tab 20 Mg PO DAILY Klonopin (Clonazepam) 0.5 Mg Tab 0.5 Mg PO BID Abilify (Aripiprazole) 10 Mg Tab 10 Mg PO DAILY Wellbutrin Xl 24 HR (Bupropion HCl) 300 Mg Tab 300 Mg PO DAILY Review of Systems Except as stated in HPI: all other systems reviewed are Neg Physical Exam Narrative GENERAL: The patient is alert, oriented x3 in slight apparent distress with her pelvic pain. Her vital signs show blood pressure 148/73 but are otherwise normal. SKIN: Focused skin assessment warm/dry. No skin rash is seen. HEAD: Atraumatic. Normocephalic. EYES: Pupils equal and round. No scleral icterus. No injection or drainage. ENT: No nasal bleeding or discharge. Mucous membranes pink and moist. NECK: Trachea midline. No JVD. CARDIOVASCULAR: Regular rate and rhythm. No murmur appreciated. RESPIRATORY: No accessory muscle use. Clear to auscultation. Breath sounds equal bilaterally. GASTROINTESTINAL: Abdomen soft, with tenderness in the left pelvis to direct palpation no guarding or rebound is present. The abdomen is nondistended. Hepatic and splenic margins not palpable. MUSCULOSKELETAL: No obvious deformities. No clubbing. No cyanosis. No edema. NEUROLOGICAL: Awake and alert. No obvious cranial nerve deficits. Motor grossly within normal limits. Normal speech. PSYCHIATRIC: Appropriate mood and affect; insight and judgment normal. GENITOURINARY: Normal external genitalia without lesions or erythema. Vaginal vault without blood but there is a off white/greenish drainage. Cervical os was closed without drainage. There is cervical motion tenderness. Uterus slightly tender and nonenlarged. Bilateral adnexa tender without masses. Left adnexa is tender but no masses are felt. Data Data Last Documented VS Vital Signs Date Time Temp Pulse Resp B/P (MAP) Pulse Ox O2 Delivery O2 Flow Rate FiO2 09/09/17 19:19 98.7 89 16 148/73 (98) 99 Orders Orders Beta Hcg (Quant/Titer) (09/09/17 22:27) Complete Blood Count With Diff (09/09/17 22:27) Basic Metabolic Panel (Bmp) (09/09/17 22:27) Gc And Chlamydia Pcr (09/09/17 22:27) Wet Prep Profile (09/09/17 22:27) Urinalysis - C+S If Indicated (09/09/17 22:27) Ceftriaxone Inj (Rocephin Inj) (09/09/17 23:30) Labs Laboratory Tests Test 09/09/17 22:15 09/09/17 22:35 Clue Cells (Wet Prep) NONE SEEN Vaginal Trichomonas (Wet Prep) NONE SEEN Vaginal Yeast (Wet Prep) NONE SEEN White Blood Count 13.6 TH/MM3 Red Blood Count 4.11 MIL/MM3 Hemoglobin 11.8 GM/DL Hematocrit 36.1 % Mean Corpuscular Volume 87.9 FL Mean Corpuscular Hemoglobin 28.7 PG Mean Corpuscular Hemoglobin Concent 32.6 % Red Cell Distribution Width 13.7 % Platelet Count 485 TH/MM3 Mean Platelet Volume 7.2 FL Neutrophils (%) (Auto) 58.8 % Lymphocytes (%) (Auto) 31.7 % Monocytes (%) (Auto) 4.4 % Eosinophils (%) (Auto) 4.1 % Basophils (%) (Auto) 1.0 % Neutrophils # (Auto) 8.0 TH/MM3 Lymphocytes # (Auto) 4.3 TH/MM3 Monocytes # (Auto) 0.6 TH/MM3 Eosinophils # (Auto) 0.6 TH/MM3 Basophils # (Auto) 0.1 TH/MM3 CBC Comment DIFF FINAL Differential Comment Blood Urea Nitrogen 12 MG/DL Creatinine 0.74 MG/DL Random Glucose 120 MG/DL Calcium Level 8.7 MG/DL Sodium Level 139 MEQ/L Potassium Level 3.9 MEQ/L Chloride Level 105 MEQ/L Carbon Dioxide Level 26.3 MEQ/L Anion Gap 8 MEQ/L Estimat Glomerular Filtration Rate 93 ML/MIN Human Chorionic Gonadotropin, Quant LESS THAN 1 MIU/ML MDM Medical Decision Making Medical Screen Exam Complete: Yes Emergency Medical Condition: Yes Medical Record Reviewed: Yes Interpretation(s) The urine test is negative. The basic metabolic profile is normal and the beta-hCG is less than 1. The CBC shows a white count of 13,600 with 485 thousand platelets but is otherwise normal. The wet prep is negative for trichomonas, yeast and clue cells. The urine which was collected earlier today shows blood in the urine but no infection. She is having vaginal bleeding. Differential Diagnosis Ectopic , PID, tubo-ovarian abscess-unlikely, urinary tract infection, dysfunctional uterine bleeding Narrative Course The patient appears to have PID. She was given Rocephin and doxycycline prescription. Diagnosis Primary Impression: PID (acute pelvic inflammatory disease) Additional Impression: Dysfunctional uterine bleeding Additional Instructions: The antibiotic is taken 1 tablet twice daily for 14 days. Also, as we discussed , you need to follow-up with her contracting analyst. Scripts Doxycycline Hyclate (Doxycycline Hyclate) 100 Mg Cap 100 MG PO BID for Infection, #28 CAP 0 Refills Prov: Tony Castle MD 09/09/17 Disposition: DISCHARGE HOME Condition: Stable Tony Castle MD Sep 09, 2017 22:26
[2017-09-09 22:47] LABS: BASOPHIL # 0.1 TH/MM3 (0-0.2); EOSINOPHIL # 0.6 TH/MM3 (0-0.4); EOSINOPHIL % 4.1 % (0.0-4.0); HEMATOCRIT 36.1 % (35.0-46.0); HEMOGLOBIN 11.8 GM/DL (11.6-15.3); LYMPH % 31.7 % (9.0-44.0); LYMPHOCYTE # 4.3 TH/MM3 (1.0-4.8); MEAN CELL VOLUME 87.9 FL (80.0-100.0); MEAN CORPUSCULAR HEMOGLOBIN 28.7 PG (27.0-34.0); MEAN CORPUSCULAR HGB CONC 32.6 % (32.0-36.0); MEAN PLATELET VOLUME 7.2 FL (7.0-11.0); MONO % 4.4 % (0.0-8.0); MONOCYTE # 0.6 TH/MM3 (0-0.9); NEUT % 58.8 % (16.0-70.0); PLATELET COUNT 485 TH/MM3 (150-450); RED BLOOD COUNT 4.11 MIL/MM3 (4.00-5.30); RED CELL DISTRIBUTION WIDTH 13.7 % (11.6-17.2); WHITE BLOOD COUNT 13.6 TH/MM3 (4.0-11.0)
[2017-09-09 22:53] LABS: CHLORIDE 105 MEQ/L (98-107); SODIUM (NA) 139 MEQ/L (136-145)
[2017-09-09 22:55] LABS: CALCIUM 8.7 MG/DL (8.5-10.1)
[2017-09-09 22:56] LABS: BICARBONATE 26.3 MEQ/L (21.0-32.0); BLOOD UREA NITROGEN 12 MG/DL (7-18); GLUCOSE,RANDOM 120 MG/DL (74-106)
[2017-09-09 22:59] LABS: CREATININE 0.74 MG/DL (0.50-1.00); GLOMERULAR FILTRATION RATE 93 ML/MIN (>89)
[2017-09-09] MEDS ORDERED: DOXY100C PO (23:21)
[2017-09-09] MEDS ORDERED: cefTRIAXone INJ 1,000 MG in SODIUM CHLORIDE 0.9% INJ 100 ML IV ONE (23:30)
[2017-09-09 23:56] VITALS: BP 128/76; PULSE 72; RESP 18; O2SAT 97
== END 2017-09-10 00:28 | disposition home or self-care (01) ==
LOC: PHED 19:11
DX: N73.0 Acute parametritis and pelvic cellulitis (principal); N93.8 Other specified abnormal uterine and vaginal bleeding; F17.200 Nicotine dependence, unspecified, uncomplicated; R11.2 Nausea with vomiting, unspecified; E11.9 Type 2 diabetes mellitus without complications; F31.9 Bipolar disorder, unspecified; Z79.84 Long term (current) use of oral hypoglycemic drugs
CPT/HCPCS: 80048; 84702; 85025; 87210; 87491; 87591; 96365; 99284; J0696